=== PATIENT | male | born 1990 | race American Indian/Alaskan Native ===

== ENCOUNTER 2016-06-18 01:00 | Emergency (ER) | payer MEDICAID, OTHER ==
[2016-06-18 01:05] VITALS: BP 147/101
[2016-06-18] MEDS ORDERED: Diphtheria,Pertussis(Acell),Tetanus Vaccine 0.5 ML SDV IM ONE (01:10)
--- NOTE | 2016-06-18 01:11 | EDM.PDOC ---
ED HPI Skin/Rash - General Chief Complaint: Laceration Stated Complaint: IN BY AMBULANCE Time Seen by Provider: 06/18/16 01:05 Source: Reports: Patient, EMS History Limitations: Reports: No limitations - History of Present Illness INITIAL COMMENTS - FREE TEXT/NARRATIVE: 26 yo [place] Male c/o falling onto right hand outside in his yard approx. 30mins. ago. Pt. c/o right third knuckle bleeding Symptom Onset Date: 06/18/16 Symptom Onset Time: 00:30 Timing: Reports: still present Location, Skin: Reports: upper extremity, right Quality: Reports: Ache Severity: moderate Known Identified Source: no Place of Occurrence: home Sick Contact: no Associated Symptoms: Reports: no other symptoms Similar Symptoms Previously: no Recent Medical Care: no - Related Data Allergies Allergy/AdvReac Type Severity Reaction Status Date / Time No Known Allergies Allergy Verified 06/18/16 01:12 Home Meds: Ambulatory Orders Medication Instructions Recorded Confirmed . [No Known Home Meds] 06/18/16 06/18/16 ED ROS GENERAL - Review of Systems Review Of Systems: See Below Constitutional: Reports: no symptoms HEENT: Reports: No symptoms Respiratory: Reports: No Symptoms Cardiovascular: Reports: No symptoms Endocrine: Reports: no symptoms GI/Abdominal: Reports: No symptoms : Reports: no symptoms Musculoskeletal: Reports: hand pain (right dorsal knuckle) Skin: Reports: other (laceration over thid knuckle) Neurological: Reports: No Symptoms Psychiatric: Reports: No symptoms Hematologic/Lymphatic: Reports: no symptoms Immunologic: Reports: no symptoms ED EXAM, SKIN/RASH Exam: See Below Exam Limited By: No limitations General Appearance: alert, WD/WN, obese Eye Exam: bilateral eye: PERRL Ears: normal external exam Nose: normal inspection Throat/Mouth: Normal inspection Head: atraumatic Neck: normal inspection Respiratory/Chest: no respiratory distress Cardiovascular: normal peripheral pulses GI/Abdominal: normal bowel sounds Back Exam: normal inspection Extremities: other (right hand 3rd knuckle) Neurological: alert, oriented Psychiatric: normal affect Skin: Other (laceration flap over right 3rd knuckle) Location, Skin: upper extremity, right ED SKIN PROCEDURES - Laceration/Wound Repair Right Dorsal Hand Lac/wound length in cm: 3.5 Appearance: irregular, clean Distal NVT: neuro & vascular intact, other (3rd dorsal tendon tear) Anesthetic type: local Local anesthesia - Lidocaine (Xylocaine): 1% plain (8cc) Local anesthetic volume: other (8cc) Skin prep: chlorhexidine (hibiciens) Exploration/Debridement/Repair: wound explored Closed with: sutures Suture size: 3-0 # of sutures: 4 Repaired with: vicryl Drain placement: No Tetanus status addressed: Yes Complications: No Course - Vital Signs Last Recorded V/S: Last Vital Signs Temp 36.0 C 06/18/16 01:01 Pulse 119 H 06/18/16 01:01 Resp 18 06/18/16 01:01 BP 147/101 H 06/18/16 01:01 Pulse Ox 97 06/18/16 01:01 - Orders/Labs/Meds Orders: Active Orders 24 hr Category Date Time Status Vaccines to be Administered [RC] PER UNIT ROUTINE Care 06/18/16 01:11 Active Hand 2V Rt [CR] Urgent Exams 06/18/16 01:10 Taken Meds: Medications Discontinued Medications Generic Name Dose Route Start Last Admin Trade Name [place] PRN Reason Stop Dose Admin Diphtheria/Tetanus/Acell Pertussis 0.5 ml 06/18/16 01:10 06/18/16 01:15 Adacel IM 06/18/16 01:11 0.5 ml .ONCE ONE Administration Lidocaine HCl 30 ml 06/18/16 01:30 06/18/16 01:38 Xylocaine-Mpf 1% INJECT 06/18/16 01:31 30 ml ONETIME ONE Administration Departure - Departure Time of Disposition: 02:06 Disposition: Home, Self-Care 01 Condition: fair Clinical Impression: Hand laceration involving tendon Qualifiers: Encounter type: initial encounter Laterality: right Qualified Code(s): S61.411A - Laceration without foreign body of right hand, initial encounter; S66.921A - Laceration of unspecified muscle, fascia and tendon at wrist and hand level, right hand, initial encounter Instructions: VIS, Diphtheria, Tetanus, and Pertussis (DTaP) - CDC, Laceration Care, Adult, [id number] Forms: ED Department Discharge Additional Instructions: keep wound clean and dry Call Orthopedic Clinic for Appt. FORTUNATO for right dorsal 3rd finger tendon tear Take oral Antibiotic as prescribed Keflex 500mg BID # 20 Take Pain Medication as prescribed Tramadol 50mg Take 1 TID # [address] in place until seen by Orthopedics ( FORTUNATO) - My Orders Last 24 Hours: My Active Orders 06/18/16 01:10 Hand 2V Rt [CR] Urgent 06/18/16 01:11 Vaccines to be Administered [RC] PER UNIT ROUTINE - Assessment/Plan Last 24 Hours: My Active Orders 06/18/16 01:10 Hand 2V Rt [CR] Urgent 06/18/16 01:11 Vaccines to be Administered [RC] PER UNIT ROUTINE
[2016-06-18] MEDS ORDERED: Lidocaine 1% 30 ML SDV INJECT ONE (01:30)
[2016-06-18] MEDS ORDERED: ceFAZolin 1 GM Vial IM ONE (02:11)
[2016-06-18] MEDS ORDERED: Water For Injection, Sterile 20 ML ONE (02:14)
== END 2016-06-18 02:32 | disposition home or self-care (01) ==
LOC: DL.ED 01:00
DX: S66.821A Laceration of other specified muscles, fascia and tendons at wrist and hand level, right hand, initial encounter (principal); W19.XXXA Unspecified fall, initial encounter; Y93.9 Activity, unspecified; Y92.096 Garden or yard of other non-institutional residence as the place of occurrence of the external cause; Z23 Encounter for immunization
CPT/HCPCS: 12002; 73120; 90715; 96372; 99283; J0690

== ENCOUNTER 2022-06-17 05:11 | Emergency (ER) | payer OTHER ==
[2022-06-17 05:48] LABS: ANION GAP 14.9 mEq/L (7-13); CHLORIDE,CL 102 mmol/L (98-107); SODIUM,NA 136 mmol/L (136-145)
[2022-06-17] MEDS ORDERED: LORazepam 0.5 MG Tab PO ONE (05:48)
[2022-06-17] MEDS ORDERED: Pantoprazole 40 MG Vial IVPUSH ONE (05:48)
[2022-06-17 05:54] LABS: ACETAMINOPHEN 0 ug/mL (10-30 (Therapeutic)); ESTIMATED GFR 99 mL/min (>=60)
[2022-06-17] MEDS ORDERED: Sodium Chloride 0.9% 10 ML Syringe FLUSH SCH (06:00)
[2022-06-17 06:08] LABS: AMPHETAMINES,URINE NEGATIVE (NEGATIVE); BARBITURATES,URINE NEGATIVE (NEGATIVE); BENZODIAZEPINE,URINE NEGATIVE (NEGATIVE); MDMA (ECSTASY), URINE NEGATIVE (NEGATIVE); METHADONE,URINE NEGATIVE (NEGATIVE); METHAMPHETAMINES,URINE POSITIVE (NEGATIVE); OPIATES,URINE NEGATIVE (NEGATIVE); OXYCODONE,URINE NEGATIVE (NEGATIVE); PHENCYCLIDINE,URINE NEGATIVE (NEGATIVE); TCA,URINE NEGATIVE (NEGATIVE)
[2022-06-17] MEDS ORDERED: GI Cocktail Oral Solution 30 ML PO ONE (06:31)
[2022-06-17 07:11] VITALS: BP 159/115; PULSE 72
== END 2022-06-17 07:07 | disposition home or self-care (01) ==
LOC: DL.ED 05:11
DX: R10.13 Epigastric pain (principal); F41.9 Anxiety disorder, unspecified; F15.10 Other stimulant abuse, uncomplicated; Z72.0 Tobacco use
CPT/HCPCS: 36415; 80053; 80143; 80305-QW; 80307; 81001; 82150; 83605; 83690; 85025; 96374; 99283; 99284-25; A9270-GY; C9113; J3490